=== PATIENT | female | born 1990 | race Caucasian/White ===

== ENCOUNTER 2018-02-13 | Emergency (ER) | payer BC ==
[2018-02-13 00:26] LABS: PLATELET COUNT 302 10^3/uL (150-400)
--- NOTE | 2018-02-13 01:50 | EDPHY ---
H & P Stated Complaint: r/o sz Time Seen by Provider: 02/13/18 00:11 HPI/ROS: Chief Complaint: Possible seizure HPI: 27-year-old woman was sleeping in bed this morning when her boyfriend noticed her breathing became abnormal. She seemed to have some sputtering breaths. This went on for a minute or 2. She then started shaking with what he is describing as a generalized convulsion, lasting for perhaps 15 sec. When he tried to wake her up she seemed very confused. She grabbed both of his arms and was not answering questions and was staring blankly. He called 911. On EMS arrival the patient was confused and amnestic to events. She continued to appear postictal. On arrival the emergency department she is feeling improved. She has never had a history of seizures before. Does have a history of chronic headaches but has not had any particularly bad headaches recently. Is not currently seen by physician. No nausea or vomiting. Did have a glass of wine last night. No other recreational drug use. No falls or head injuries. Otherwise she has been in her usual state of health. ROS: 10 point Review of Systems is negative except as noted in the HPI. PMH: Chronic headaches Social History: No smoking, occasional alcohol, no recreational drug use Family History: non-contributory Physical Exam: Gen: Awake, Alert, No Distress HEENT: Nose: no rhinorrhea Eyes: PERRLA, EOMI Mouth: Moist mucosa Neck: Supple, no JVD Chest: nontender, lungs clear to auscultation Heart: S1, S2 normal, no murmur Abd: Soft, non-tender, no guarding Back: no CVA tenderness, no midline tenderness Ext: no edema, non-tender Skin: no rash Neuro: CN II-XII intact, Sensation grossly intact, Strength 5/5 in bilateral upper and lower extremities, normal finger-nose, normal heel-small, negative Romberg - Personal History LMP (Females 10-55): 22-28 Days Ago Current Tetanus Diphtheria and Acellular Pertussis (TDAP): Yes - Medical/Surgical History Other PMH: [place] - Social History Smoking Status: Never smoked Constitutional: Initial Vital Signs Temperature (C) 36.8 C 02/13/18 00:00 Heart Rate 108 H 02/13/18 00:00 Respiratory Rate 20 02/13/18 00:00 Blood Pressure 147/101 H 05/22/18 00:00 O2 Sat (%) 95 02/13/18 00:00 O2 Delivery Mode Room Air Allergies/Adverse Reactions: mebendazole [From Vermox] Allergy (Verified 02/13/18 00:03) Home Medications: Medication Instructions Recorded Bcp 02/13/18 Medical Decision Making - Diagnostics Imaging Results: CT scan of the brain is normal per Dr. Antunez Imaging: Discussed imaging studies w/ train caller Radiologist ED Course/Re-evaluation: 27-year-old woman who had a witnessed convulsion, possible seizure while asleep. She was confused afterwards. CT scan of the head is negative here. Blood work is negative including negative test. She is currently at her baseline without complaint. Will discharge with follow-up with Neurology. She has been cautioned not to drive until she has been cleared by neurologist. - Data Points Laboratory Results: Laboratory Results 02/13/18 00:10 02/13/18 00:10 02/13/18 02/13/18 02/13/18 00:10 00:10 00:10 WBC 9.25 10^3/uL 10^3/uL (3.80-9.50) RBC 4.53 10^6/uL 10^6/uL (4.18-5.33) Hgb 13.5 g/dL g/dL (12.6-16.3) Hct 39.3 % % (38.0-47.0) MCV 86.8 fL fL (81.5-99.8) MCH 29.8 pg pg (27.9-34.1) MCHC 34.4 g/dL g/dL (32.4-36.7) RDW 12.1 % % (11.5-15.2) Plt Count 302 10^3/uL 10^3/uL (150-400) MPV 10.3 fL fL (8.7-11.7) Neut % (Auto) 54.7 % % (39.3-74.2) Lymph % (Auto) 37.6 % % (15.0-45.0) [place] % (Auto) 6.7 % % (4.5-13.0) Eos % (Auto) 0.5 % L % (0.6-7.6) Baso % (Auto) 0.3 % % (0.3-1.7) Nucleat RBC Rel Count 0.0 % % (0.0-0.2) Absolute Neuts (auto) 5.05 10^3/uL 10^3/uL (1.70-6.50) Absolute Lymphs (auto) 3.48 10^3/uL H 10^3/uL (1.00-3.00) Absolute Monos (auto) 0.62 10^3/uL 10^3/uL (0.30-0.80) Absolute Eos (auto) 0.05 10^3/uL 10^3/uL (0.03-0.40) Absolute Basos (auto) 0.03 10^3/uL 10^3/uL (0.02-0.10) Absolute Nucleated RBC 0.00 10^3/uL 10^3/uL (0-0.01) Immature Gran % 0.2 % % (0.0-1.1) Immature Gran # 0.02 10^3/uL 10^3/uL (0.00-0.10) Sodium 139 mEq/L mEq/L (135-145) Potassium 4.0 mEq/L mEq/L (3.3-5.0) Chloride 104 mEq/L mEq/L (97-110) Carbon Dioxide 23 mEq/l mEq/l (22-31) Anion Gap 12 mEq/L mEq/L (8-16) BUN 13 mg/dL mg/dL (7-23) Creatinine 0.8 mg/dL mg/dL (0.6-1.0) Estimated GFR > 60 Glucose 83 mg/dL mg/dL (70-100) Calcium 9.5 mg/dL mg/dL (8.5-10.4) Beta HCG, Qual NEGATIVE Departure - Departure Disposition: Home, Routine, Self-Care Clinical Impression: Seizure Condition: Good Instructions: New-Onset Seizure in Adults (ED) Additional Instructions: Do not drive until you been cleared by the neurologist. Follow up with a neurologist in 3-4 days for further evaluation. Return to the emergency department for further convulsing, loss of consciousness , headaches, fevers or chills, or any other concerns. Referrals: NONE *PRIMARY CARE P,. [Primary Care Provider] - As per Instructions Charly Sharpe DO [Medical Doctor] - As per Instructions
[2018-02-13 02:04] VITALS: BP 122/87
== END 2018-02-13 02:04 | disposition home or self-care (01) ==
DX: R56.9 Unspecified convulsions (principal)

== ENCOUNTER → 2018-02-22 | Outpatient (CLI) | payer BC ==
--- NOTE | 2018-02-23 15:33 | CPEEG ---
[f rep st] ELECTROENCEPHALOGRAM DATE OF STUDY: 02/22/2018 INTERPRETATION: Normal EEG during wakefulness and sleep. There was no potentially epileptogenic abn ormalities present recording. REPORT: This EEG contains 9-10 Hz alpha to the posterior head regions. There was no abnormal activa tion at rest, during photic stimulation hyperventilation. The patient became drowsy and fell asleep during the study. There was no abnormal activation during drowsiness, sleep, or during times of arou shawanda. /[id number]/MODL
== END ==
LOC: FCPNEURO 13:08
PROVIDERS: ATTEND Physician Assistant Medical
DX: R56.9 Unspecified convulsions (principal)

== ENCOUNTER → 2018-03-05 | Outpatient (CLI) | payer BC, OTHER | LOC: FIMAGING 18:39 | PROVIDERS: ATTEND Physician Assistant Medical | DX: R56.9 Unspecified convulsions (principal) ==